=== PATIENT | female | born 1975 | race Caucasian/White ===

== ENCOUNTER 2019-12-29 16:38 | Emergency (ER) | payer MEDICARE, SELFPAY ==
[2019-12-29 16:41] VITALS: BP 154/77; PULSE 111; RESP 22; TEMP 37.4; O2SAT 98; BMI 39.6
--- NOTE | 2019-12-29 17:03 | HMH.EDABDPAI ---
ED Disposition Clinical Impression: Constipation Qualifiers: Constipation type: slow transit constipation Qualified Code(s): K59.01 - Slow transit constipation Disposition: Home, Self-Care Condition on Discharge: Good Instructions: DI for Acute Abdomen Referrals: Malika Bourgeois [Primary Care Provider] - - Critical Care Critical Care Time: No Attestation: On 12/29/19, the high probability of a clinically significant, sudden or life threatening deterioration of the following system(s) required my full and direct attention, intervention and personal management. The time I documented below is in addition to time spent performing reported procedures but includes the following listed in this critical care notation. Medical Decision Making - Hector Inquiry Pt receiving controlled substance: No Vital Signs: 12/29/19 16:41 Temperature 99.3 F Temperature Source Oral Pulse Rate [Radial] 111 H Respiratory Rate 22 Blood Pressure [Right Arm] 154/77 H Blood Pressure Mean [Right Arm] 102 Blood Pressure Position [Right Arm] Sitting 02 Sat by Pulse Oximetry 98 Oxygen Delivery Method Room Air - Lab Data Lab results reviewed: Yes: I reviewed the patient's lab results. Lab Results 12/29/19 16:50: Urine Color Yellow, Urine Appearance Clear, Urine pH 6.0, Ur Specific [place] 1.020, Urine Protein Negative, Urine Glucose (UA) Negative, Urine Ketones Trace, Urine Blood Negative, Urine Nitrate Negative, Urine Bilirubin Negative, Urine Urobilinogen 0.2, Ur Leukocyte Esterase 1+ A, Urine RBC None, Urine WBC 5-10, Ur Squamous Epith Cells 5-10, Urine Bacteria 1+ 12/29/19 16:50: Urine HCG, Qual Negative 12/29/19 17:05: WBC 7.8, RBC 4.52, Hgb 10.9 L, Hct 36.0 L, MCV 79.5 L, MCH 24.1 L, MCHC 30.3 L, RDW 16.1, Plt Count 182, MPV 8.5, Neut % (Auto) 69.2, Lymph % (Auto) 19.7, [place] % (Auto) 6.3, Eos % (Auto) 4.0, Baso % (Auto) 0.7, Neut # (Auto) 5.4, Lymph # (Auto) 1.5, [place] # (Auto) 0.5, Eos # (Auto) 0.3, Baso # (Auto) 0.1 12/29/19 17:05: Sodium 137, Potassium 4.0, Chloride 102, Carbon Dioxide 28, Anion Gap 11.0, BUN 20 H, Creatinine 0.80, Estimated Creat Clear 159, Estimated GFR 77, Est GFR ( Amer) 93, Glucose 109 H, Calcium 9.4, Total Bilirubin 0.4, AST 41 H, ALT 51, Alkaline Phosphatase 91, Total Protein 7.4, Albumin 4.4, Globulin 3.0, Albumin/Globulin Ratio 1.5 12/29/19 17:05: Lactate 1.2 12/29/19 17:05: Lipase 138 Result diagrams: 12/29/19 17:05 12/29/19 17:05 Orders (Tests/Meds): ED MEDICATIONS Discontinued Medications Generic Name Dose Route Start Last Admin Trade Name Freq PRN Reason Stop Dose Admin Ketorolac Tromethamine 30 mg 12/29/19 17:00 12/29/19 17:13 Ketorolac 30mg/Ml Vial IV 12/29/19 17:01 30 mg ONCE ONE Administration ORDERS Category Date Time Status Urine Culture Stat Micro 12/29/19 16:50 Received - CT Data CT Scan: Abdomen, Pelvis Time Received: 18:00 Findings Narrative: No significant acute findings abdomen or pelvis with attention to the left abdomen No inflammatory changes abdomen/pelvis No urinary tract calculi nor obstruction. Appendix normal. Only note increased stool throughout right, transverse and descending colon suggesting mild constipation Abdominal Pain HPI - General Chief Complaint: Abdominal Pain Stated Complaint: Sharp pain in lower abdomen Time Seen by Provider: 12/29/19 17:00 Mode of Arrival: Ambulatory Limitations: No Limitations Description of Symptoms (Recalled from ER Triage Doc. by RN): TO ED PER PVT CAR WITH C/O LLQ ABD PAIN STARTING APPROX 2 HRS CHICKEN VACCINATOR. PT DENIES NAUSEA, VOMITING, DIARRHEA, FEVER, CHILLS - History of Present Illness HPI narrative: This is a 44-year-old female presents with sudden onset left flank/lateral abdomen pain. Pain is sharp and does not radiate. Pain came on at rest. Pain rated at 7 out of 10 in intensity without applying measures. No nausea vomiting or diarrhea. No fever or chills. No dysuria.
[2019-12-29 17:05] LABS: Microscopic, Urine URINE MICROSCOPIC (MICROSCOPIC)
[2019-12-29 17:07] LABS: Appearance,Urine CLEAR (Clear); Bilirubin,Urine Negative (Negative); Blood, Urine Negative (Negative); Color,Urine YELLOW (Yellow); Glucose,Urine (UA) Negative (Negative); Ketones,Urine TRACE (Negative); Leukocyte Esterase,Urine 1+ (Negative); Nitrate,Urine Negative (Negative); Protein,Urine Negative (Negative); Urobilinogen,Urine 0.2 EU/dl (0.2)
[2019-12-29 17:11] LABS: Urine Pregnancy, HCG Qual. Negative (Negative)
[2019-12-29 17:17] LABS: Bacteria,Urine 1+ /lpf
[2019-12-29 17:22] LABS: Basophils # 0.1 K/mm3 (0-0.2); Basophils % 0.7 % (0.1-2.0); Eosinophils # 0.3 K/mm3 (0.0-0.4); Hemoglobin 10.9 g/dL (12.2-16.2); Lymphocytes # 1.5 K/mm3 (0.7-4.5); Lymphocytes % 19.7 % (10-50); Mean Corpuscular HGB Conc 30.3 g/dL (31.8-35.4); Mean Corpuscular Hemoglobin 24.1 pg (27.0-31.2); Mean Corpuscular Volume 79.5 fl (81-99); Mean Platelet Volume 8.5 fl (7.4-10.4); Monocytes # 0.5 K/mm3 (0.1-1.0); Monocytes % 6.3 % (1.7-9.3); Neutrophils # 5.4 K/mm3 (1.8-7.8); Neutrophils % 69.2 % (37.0-80.0); Platelet Count 182 K/mm3 (142-424); Red Blood Count 4.52 M/mm3 (4.20-5.40); Red Cell Distribution Width 16.1 % (11.5-17.5); White Blood Count 7.8 K/mm3 (4.8-10.8)
[2019-12-29 17:28] LABS: Chloride 102 mmol/L (98-107); Sodium 137 mmol/L (136-145)
[2019-12-29 17:31] LABS: Alanine Aminotransferase 51 U/L (12-78); Albumin Level 4.4 g/dl (3.5-5.0); Albumin/Globulin Ratio 1.5 (1.1-1.8); Alkaline Phosphatase 91 U/L (38-126); Aspartate Amino Transferase 41 U/L (14-36); Bilirubin,Total 0.4 mg/dl (0.2-1.3); Blood Urea Nitrogen 20 mg/dl (7-17); Carbon Dioxide 28 mmol/L (22.0-30.0); Creatinine Clearance Estimated 159 mL/min (50-200); Estimated Glomerular Filt Rate 77 ml/min (>60); GFR (African American) 93 ML/MIN (>60); Total Protein,Serum 7.4 g/dl (6.3-8.2)
[2019-12-29 17:32] LABS: Calcium 9.4 mg/dl (8.4-10.2); Glucose 109 mg/dl (74-100); Lactic Acid 1.2 mmol/L (0.7-2.1); Lipase 138 U/L (23-300)
--- NOTE | 2019-12-29 17:34 | CT_ITS ---
Procedure: CT ABDOMEN PELVIS WO CON Referring Doctor: Lan Miller Patient Age:44Y CLINICAL INDICATION: LLQ ABD PAIN Left-sided pain abdominal pain 2 hours COMPARISON: No exams were available for comparison TECHNIQUE: No oral nor IV contrast utilized Helical 111axial images obtained with sagittal and coronal reformats. All CT scans at the facility use one or more dose reduction, viz: automated exposure control, ma/kV adjustment per patient size (including targeted exams where dose is matched to indication, i.e. head), or iterative reconstruction technique. FINDINGS: Lower thorax: Incidental note 6.5 mm nonspecific nodule at the posterior right lung base. No discrete calcification but it is moderately dense for size and may reflect early granuloma however would suggest consider and suggest follow-up CT chest within the next 3 months to better establish stability and to survey for any other nodules. There is also a tiny 3 mm nodule at the right posterior sulcus.. I presume the patient has no other known disease process.. He may also want to encourage baseline routine mammogram and possibly CXR if these have not been performed elsewhere.. ABDOMEN: Lack of oral and IV contrast do decrease sensitivity 1. Liver: Unremarkable no masses or biliary dilatation. Gallbladder: Cholecystectomy. Gallbladder surgically removed with normal common duct.. Pancreas: Unremarkable. No masses no inflammatory changes evident.. Spleen:.. Upper normal size Adrenals: unremarkable tract Kidneys/ureters: Unremarkable. No discrete calculi nor obstruction. Ureters normal course and caliber. The the the the the PELVIS: Urinary bladder unremarkable.-No calculi, no wall thickening or mass evident Uterus, appears normal size and configuration. Radiopaque features towards right and left cornua appear to be related to bilateral Essure filaments.. No adnexal masses is of ovaries appear relatively small bilaterally period no free fluid cul-de-sac . GI tract Stomach-upper normal wall thickness most likely reflects lack of distension in the stomach. Duodenum loop and small bowel appear normal. Mid and distal small bowel normal caliber/unremarkable with no dilatation. The appendix is identified the typical position and is normal. Terminal ileum unremarkable. Large bowel. Increased stool throughout the colon is suggesting a mild constipation-this increased stool most evident at the right colon, transverse colon and continues through the majority of descending colon. There is less stool rectosigmoid, mild to moderate solid stool throughout the rectosigmoid.. No wall thickening no inflammatory changes at large or small bowel. No bowel dilatation Peritoneum: No abnormal fluid collections. No obvious inflammatory changes. No free air. Lymph nodes: No enlarged lymph nodes apparent. Vasculature: No evidence of abdominal aortic aneurysm the. No retroperitoneal hemorrhage evident. Bones: No acute fracture. No lesions but degenerative disc space narrowing most evident L5/S1 with mild disc bulge and spurring most evident towards left foramen. IMPRESSION: No significant acute findings abdomen or pelvis with attention to the left abdomen No inflammatory changes abdomen/pelvis No urinary tract calculi nor obstruction. Appendix normal. Only note increased stool throughout right, transverse and descending colon suggesting mild constipation Incidental observation: 6.5 mm nonspecific nodule posterior right lung base. Tiny 3 mm nodule right posterior sulcus. These are nonspecific but more likely benign nodules, such early granulomatous nodules. However since cannot confirm calcif
[2019-12-29 18:46] VITALS: BP 135/74; PULSE 78; RESP 16; TEMP 36.6; O2SAT 98
== END 2019-12-29 18:47 | disposition home or self-care (01) ==
PROVIDERS: Emergency Provider Emergency Medicine; PCP Physician Assistant
DX: K59.01 Slow transit constipation (principal)
CPT/HCPCS: 74176; 80053; 81001; 81025; 83605; 83690; 85025; 87086; 96374; 99283

== ENCOUNTER 2022-10-14 15:54 | Emergency (ER) | payer MEDICARE, SELFPAY ==
[2022-10-14] VITALS (8 sets, daily range): BP systolic 106–153; BP diastolic 49–85; PULSE 66–87; RESP 16–18; TEMP 36.6–36.8; O2SAT 96–98; BMI 42.3
--- NOTE | 2022-10-14 16:27 | MR_ITS ---
PROCEDURE INFORMATION: Exam: MRA Head Without and With Contrast, Venography Exam date and time: 10/14/2022 5:08 PM Age: 47 years old Clinical indication: Headache; Additional info: Concern for dvst, blurry vision and frontal PEREZ TECHNIQUE: Imaging protocol: Magnetic resonance angiography of the head without and with contrast. Angiographic sequences such as [id number] (TOF) or Time-resolved contrast techniques were performed. Exam focused on the veins. Contrast material: PROHANCE; Contrast volume: 24 ml; Contrast route: IV; COMPARISON: No relevant prior studies available. FINDINGS: Superior sagittal sinus: Patent. Straight sinus: Patent. Transverse sinuses: Patent. Sigmoid sinuses: Patent. Internal jugular veins: Visualized segment patent. IMPRESSION: No venous thrombus.
[2022-10-14 16:31] LABS: Basophils % 0.3 % (0.1-2.0); Eosinophils # 0.1 K/mm3 (0.0-0.4); Eosinophils % 2.2 % (0.1-12.0); Hematocrit 36.4 % (37.0-47.0); Hemoglobin 11.6 g/dL (12.2-16.2); Lymphocytes # 1.8 K/mm3 (0.7-4.5); Lymphocytes % 30.5 % (10-50); Mean Corpuscular HGB Conc 31.8 g/dL (31.8-35.4); Mean Corpuscular Hemoglobin 25.8 pg (27.0-31.2); Mean Corpuscular Volume 81.2 fl (81-99); Mean Platelet Volume 9.4 fl (7.4-10.4); Monocytes # 0.5 K/mm3 (0.1-1.0); Neutrophils # 3.5 K/mm3 (1.8-7.8); Neutrophils % 58.9 % (37.0-80.0); Platelet Count 176 K/mm3 (142-424); Red Blood Count 4.48 M/mm3 (4.20-5.40); Red Cell Distribution Width 15.8 % (11.5-17.5)
[2022-10-14 16:34] LABS: Chloride 102 mmol/L (98-107)
[2022-10-14 16:35] LABS: Sodium 139 mmol/L (136-145)
--- NOTE | 2022-10-14 16:36 | HMH.EDGENADL ---
Discharge Plan Disposition Patient Disposition: Left Against Medical Advice Referrals Follow up/Referrals: Flori Montelongo APRN [Primary Care Provider] - See instructions Clinical Impressions Clinical Impression: Left against medical advice, Headache Discharge ED Provider: Linwood Gonzalez General Adult HPI General Chief complaint: Headache Stated complaint: blurry vision,headache Time Seen by Provider: 10/14/22 16:01 Mode of Arrival: Ambulatory Source of Information: Patient Limitations: No Limitations Description of Symptoms (Recalled from ER Triage Doc. by RN): c/o blurry vision and slight PEREZ since this am. PT states she has a hx of migraines with blurry vision but she hasnt had one in a very long time. History of Present Illness HPI narrative: This is a 47-year-old female with history of remote headaches presenting with headache and blurry vision. Patient states that she woke up this morning, 10/13 with mild frontal headache and blurry vision. It has not since improved. Has not tried any interventions to make it better. Because it has not gotten any better, she came to the ER for further evaluation. Denies nausea, vomiting, double vision, worsening headache when lying flat, any other neurologic deficits, facial swelling, history of DVTs or PEs, any recent medication changes, DVT or PE risk factors, or any other concerns. Related Data Allergies Allergy/AdvReac Type Severity Reaction Status Date / Time No Known Allergies Allergy Verified 12/29/19 16:59 [facility] Disclaimer: The information contained in this section may have been updated after the patient was seen, as this information can be updated by other users. Social History Smoking Status: Never smoker alcohol intake: never current occupational status: employed Travel in the last 8 weeks: None ROS Obtained: Yes All systems reviewed & no additional complaints except as documented Physical Exam General General appearance: alert, in no apparent distress, obese and other ( ) Head Head exam: atraumatic and normocephalic Eye Eye exam: Present normal appearance, PERRL, EOMI and other (No evidence of photophobia. No proptosis. OS 20/30, OD 20/40, overall 20/25) ENT ENT exam: Present mucous membranes moist Neck Neck exam: Present normal inspection, full ROM and trachea midline Respiratory Respiratory exam: Absent respiratory distress, wheezes, stridor, accessory muscle use or prolonged expiratory phase Cardiovascular Cardiovascular exam: Present regular rate and normal rhythm Abdominal Exam Abdominal exam: Present soft; Absent distention, tenderness, guarding, rebound, rigidity or normal bowel sounds Extremities Exam Extremities exam: Absent edema Neurological Exam Neurological exam: Present alert, oriented X3, CN II-XII intact and normal gait; Absent motor sensory deficit Skin Skin exam: Present warm and dry; Absent diaphoresis or erythema Medical Decision Making Medical Records Medical records reviewed: Yes I reviewed the patient's medical records. Hector Inquiry Pt receiving controlled substance: No Hector was queried for this patient: No Vital Signs: 10/14/22 15:56 10/14/22 16:31 10/14/22 18:04 Temperature 98 F Temperature Source Oral Pulse Rate 76 76 Pulse Rate [Left Radial] 78 Respiratory Rate 18 Blood Pressure 136/68 139/57 L Blood Pressure [Right Arm] 153/68 H Blood Pressure Mean 89 84 Blood Pressure Mean [Right Arm] 96 Blood Pressure Source Blood Pressure Source [Right Arm] Automatic Cuff Blood Pressure Position Blood Pressure Position [Right Arm] Sitting 02 Sat by Pulse Oximetry 97 97 97 Oxygen Delivery Method Room Air Room Air 10/14/22 18:31 10/14/22 19:02 10/14/22 19:32 Temperature Temperature Source Pulse Rate 80 73 87 Pulse Rate [Left Radial] Respiratory Rate Blood Pressure 139/56 L 117/49 L 106/85 L Blood Pressure [Right Arm] Blood Pressure Mean 75 78 91 Blood Pressu
--- NOTE | 2022-10-14 16:36 | PC.NURSE ---
visual acuity Left eye 20/30 right eye 20/40 both eyes 20/25
--- NOTE | 2022-10-14 16:36 | PC.NURSE ---
care management paged for MRI approval
[2022-10-14 16:37] LABS: Alanine Aminotransferase 55 U/L (12-78); Aspartate Amino Transferase 46 U/L (14-36); Blood Urea Nitrogen 17 mg/dl (7-17); Creatinine Clearance Estimated 74 mL/min (50-200); Estimated Glomerular Filt Rate 67 ml/min (>60); GFR (African American) 81 ML/MIN (>60)
[2022-10-14 16:38] LABS: Albumin Level 4.2 g/dl (3.5-5.0); Albumin/Globulin Ratio 1.4 (1.1-1.8); Alkaline Phosphatase 114 U/L (38-126); Bilirubin,Total 0.4 mg/dl (0.2-1.3); Calcium 9.4 mg/dl (8.4-10.2); Carbon Dioxide 29 mmol/L (22.0-30.0); Globulin 3.1 g/dL (1.3-3.2); Glucose 107 mg/dl (74-100); Total Protein,Serum 7.3 g/dl (6.3-8.2)
--- NOTE | 2022-10-14 16:45 | PC.NURSE ---
Darlene in consulted for MRI approval. MD orantes to complete MRI
[2022-10-14 17:15] LABS: C-Reactive Protein 16.2 mg/L (0-4)
[2022-10-14 17:26] LABS: Erythrocyte Sedimentation Rate 31 mm/hr (0-20)
--- NOTE | 2022-10-14 17:45 | PC.NURSE ---
pt arrived back from mri
--- NOTE | 2022-10-14 18:01 | PC.NURSE ---
wili rounding on pt, family at bs
--- NOTE | 2022-10-14 18:16 | PC.NURSE ---
rounded on pt,
--- NOTE | 2022-10-14 19:26 | PC.NURSE ---
rounded on pt, visitor at BS, pt states no needs at this time, updated pt that ER MD should be in with her soon to do LP procedure.
--- NOTE | 2022-10-14 19:49 | PC.NURSE ---
and carly correahousehold cook at
--- NOTE | 2022-10-14 19:55 | PC.NURSE ---
ER MD Gonzalez at for LP
--- NOTE | 2022-10-14 20:00 | PC.NURSE ---
ER MD Gonzalez speaking with ARLEN Ribeiro hospitalist
--- NOTE | 2022-10-14 20:11 | PC.NURSE ---
MD at bedside discussing plan of care. Patient refuses to allow transfer to for continuity of care. Patient verbalizes understanding to both MD and this nurse and family of her intent to leave AMA and go home. Discuss the need for neurologic monitor and patient is adamant she will just go on to [place] if she feels worse . Patient ambulated ZANE independently, family member at bedside. Patient has no current neurological deficits observable and is A&Ox4. GCS 15. VSS. BP 126/70
== END 2022-10-14 20:20 | disposition left against medical advice (07) ==
PROVIDERS: Emergency Provider Emergency Medicine; PCP Nurse Practitioner Family
DX: R51.9 Headache, unspecified (principal); H53.8 Other visual disturbances
CPT/HCPCS: 62270; 70546; 80053; 85025; 85651; 86140; 96361; 96374; 96375; 99285; A9576; J0131